=== PATIENT | female | born 1965 | race Caucasian/White ===

== ENCOUNTER 2021-06-18 16:32 | Emergency (ER) | payer OTHER, BC, SELFPAY ==
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
[2021-06-18 16:38] VITALS: BP 139/80; PULSE 96; RESP 18; TEMP 36.9; O2SAT 100
--- NOTE | 2021-06-18 18:05 | PC.NURSE ---
pt reporting tingling to bilateral anterior upper legs. legs are visualized trembling by this RN.
[2021-06-18] MEDS: KETOROLAC 30 MG/ML VIAL (*BKC) IV PUSH (18:06)
[2021-06-18] MEDS: methylPREDNISolone SOD SUCC 125 MG VIAL IV PUSH (18:07)
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
--- NOTE | 2021-06-18 18:54 | PC.NURSE ---
per Shae, [employer] - provider states ok to remove c collar.
--- NOTE | 2021-06-18 18:57 | PC.NURSE ---
pt reports trembling and tingling has stopped. no trembling visualized.
--- NOTE | 2021-06-18 19:08 | PC.NURSE ---
Report received and care of pt assumed at this time.
[2021-06-18 19:53] VITALS: BP 133/87; PULSE 90; RESP 18; O2SAT 100
== END 2021-06-18 19:55 | disposition home or self-care (01) ==
PROVIDERS: Emergency Provider General Practice
DX: S16.1XXA Strain of muscle, fascia and tendon at neck level, initial encounter (principal); S39.012A Strain of muscle, fascia and tendon of lower back, initial encounter; M47.816 Spondylosis without myelopathy or radiculopathy, lumbar region; M47.812 Spondylosis without myelopathy or radiculopathy, cervical region; V49.40XA Driver injured in collision with unspecified motor vehicles in traffic accident, initial encounter
CPT/HCPCS: 72040; 72100; 72125; 96374; 96375; 99284; J1885; J2930